=== PATIENT | female | born 1970 | race Caucasian/White ===

== ENCOUNTER 2024-09-24 06:58 | Day surgery (SDC) | payer OTHER, SELFPAY ==
--- NOTE | 2024-09-03 23:57 | PCM.HP.BLA ---
History and Physical Date of Admission: 09/24/24 HPI: The patient is a 54 year old female presenting for pre-operative visit. She is scheduled for Hysteroscopy D&C with polyp resection , for PMB and thickened endometrium on 09/24/24. Procedure discussed along with risks, benefits and complications. Other alternatives discussed for management. Consent form signed? No. PAST MEDICAL HISTORY PAST MEDICAL HISTORY Diagnosis Date ? Anemia ? Endometriosis, site unspecified Endometriosis ? False positive stress test chest tightness ? Hypertension ? Other and unspecified hyperlipidemia PAST SURGICAL HISTORY PAST SURGICAL HISTORY Procedure Laterality Date ? DELIVERY ONLY 12/1994 , low cervical ? COLONOSCOPY FLX DX W/COLLJ SPEC WHEN PFRMD 03/03/2020 Colonoscopy ? ENDOMETRIAL BX W/WO ENDOCERVIX BX W/O DILAT SPX 11/22/2004 ? EXC CYST/ABERRANT BREAST TISSUE OPEN LESION 02/1994 ? LAPS ABD PRTM&OMENTUM DX W/WO SPEC BR/WA SPX 1992 Laparoscopy ? PAST SURGICAL HISTORY OF 06/2008 2 Cysts removed from back (benign) ? PAST SURGICAL HISTORY OF cyst removed from neck CURRENT MEDICATIONS Current Outpatient Medications Medication Sig Dispense Refill ? phenazopyridine (PYRIDIUM) 200 mg tablet Take 1 tablet by mouth three times a day as needed (bladder discomfort). for up to 3 days 27 tablet 1 ? norethindrone (AYGESTIN) 5 mg tablet Take 0.5 tablets by mouth once daily. 10 days a month to induce menses (Patient not taking: Reported on 06/23/2024) 5 tablet 3 ? famotidine (PEPCID) 20 mg tablet Take 20 mg by mouth twice daily. ? ferrous sulfate 325 mg (65 mg iron) tablet Take 1 tablet by mouth once daily. 3 ? lisinopril (ZESTRIL, PRINIVIL) 20 mg tablet Take 20 mg by mouth once daily. 0 ? atorvastatin calcium(LIPITOR 10 MG TAB) Take one(1) tablet daily. 90 3 No current facility-administered medications for this visit. ALLERGIES: Patient has no known allergies. PERSONAL HISTORY: SOCIAL HISTORY Social History Tobacco Use ? Smoking status: Never ? Smokeless tobacco: Never Vaping Use ? Vaping status: Never Used Substance Use Topics ? Alcohol use: No ? Drug use: No FAMILY HISTORY: FAMILY HISTORY FAMILY HISTORY Adopted: Yes REVIEW OF SYMPTOMS: GENERAL: denies fevers or chills ENDOCRINOLOGY: has not been on steroids Cardiology : denies palpitations or chest pain Respiratory: denies SOB or cough Hematology: denies history of prolonged bleeding or easy bruising or VTE Allergy: Denies history of personal or family history of allergy to anesthesia PHYSICAL EXAMINATION: VITALS: Last menstrual period 07/08/2024. GENERAL: The patient is well nourished, well hydrated in no acute distress. , The patient is oriented to time, place, and person. PELVIC US 08/20/24 Impression The uterus is axial and measures 78 mm x 37 mm x 50 mm. The endometrial thickness is 16.3 mm. The endometrium is heterogeneous and thickened with no vascular flow visualized. This could represent an endometrial polyp, but other pathology cannot be excluded. The right ovary measures 22 mm x 13 mm x 19 mm. The left ovary measures 24 mm x 16 mm x 10 mm. There is no free fluid visualized. IMPRESSION: PMB, thickened endometrium PLAN: The risks/benefits/alternatives and personal involved for the planned hysteroscopy D&C with polyp resectoin were reviewed with the patient. Her questions were answered to her satisfaction and she desires to proceed. Consent was signed. I reviewed with her postop instructions and expectations. Needs consent day of surgery FSH/estrogen levels in menopausal range I have reviewed and updated past medical and surgical history, medications and allergies Assessment & Plan Assessment/Plan (1) PMB (postmenopausal bleeding): (2) Endometrial thickening on ultrasound:
[2024-09-10 14:32] LABS: Hematocrit 41.6 % (37-47); Hemoglobin 13.3 g/dL (12.0-15.0); Mean Corpuscular Hgb 29.6 pg (27.0-32.0); Mean Corpuscular Volume 92.7 fL (81-99); Mean Platelet Vol. 9.2 fl (6.2-12.0); Platelet Count 274 K/mm3 (150-450); RBC Distribution Width CV 13.7 % (11.6-14.6); RBC Distribution Width SD 46.5 fl (35.1-43.9); Red Blood Count 4.49 M/mm3 (4.2-5.4); White Blood Count 7.5 K/mm3 (4.4-11.0)
[2024-09-10 15:21] LABS: Anion Gap 7 (5-15); BUN 15 mg/dL (7-18); BUN/Creat Ratio 12.4 RATIO (10-20); Calcium,Total 8.8 mg/dL (8.5-10.1); Chloride 106 mmol/L (98-107); Creatinine, Serum 1.21 mg/dL (0.55-1.02); EST Glomerular Filtration Rate 49 mL/min (>60); Est Glom Filt Rate - Afr Amer 59 mL/min (>60); Glucose 84 mg/dL (74-106); Potassium 3.9 mmol/L (3.5-5.1); Sodium Level 141 mmol/L (136-145)
[2024-09-24] VITALS (12 sets, daily range): BP systolic 104–141; BP diastolic 68–88; PULSE 52–64; RESP 16; TEMP 36.2–37.2; O2SAT 95–100; BMI 37.5
[2024-09-24] MEDS: Acetaminophen 500 MG Tablet 1000 MG PO (07:35)
[2024-09-24] MEDS: Ketorolac 30 MG/ML Syringe IV (07:35)
--- NOTE | 2024-09-24 07:46 | PCM.PRE.AN2 ---
ASA Classification* ASA Classification ASA Classification: 2 Assessment & Plan Anesthesia* Anesthesia Assessment Anesthesia Assessment: Discussed sedation and/or anesthesia options, risks, benefits, and alternatives with patient/parents/legal guardian/POA. Questions invited. The patient/parents/legal guardian/POA seems to understand and agrees to proceed with anesthesia plan. Reviewed the physical assessment, medical history, allergy history and patient home medications list prior to surgery/procedure/anesthetic and documented any changes. Performed airway and anesthesia risk assessments. Anesthesia Type Anesthesia Type: MAC (LMA as backup ) History Source History Obtained from:: Patient, Chart and Significant Other (spouse) Anesthesia Focused Assessment* Temperature: 98.9 F Pulse Rate: 62 Blood Pressure: 113/70 Respiratory Rate: 16 Pulse Ox: 99 Oxygen Delivery Method: Room Air Airway Assessment Mouth opens: >3 cm Mallampati Score: II Teeth Condition: Intact and Chipped/Broken (chipped upper incisor ) Neck Range of motion (ROM): Full ROM Focused Labs Anesthesia Preop lab: CBC WBC 7.5 K/mm3 (4.4-11.0) 09/10/24 14:09/10/24 RBC 4.49 M/mm3 (4.2-5.4) 09/10/24 14:09/10/24 Hgb 13.3 g/dL (12.0-15.0) 09/10/24 14:09/10/24 Hct 41.6 % (37-47) 09/10/24 14:09/10/24 Plt Count 274 K/mm3 (150-450) 09/10/24 14:09/10/24 CHEMISTRY Potassium 3.9 mmol/L (3.5-5.1) 09/10/24 14:09/10/24 Sodium 141 mmol/L (136-145) 09/10/24 14:09/10/24 BUN 15 mg/dL (7-18) 09/10/24 14:09/10/24 Creatinine 1.21 mg/dL (0.55-1.02) H 09/10/24 14:09/10/24 Glucose 84 mg/dL (74-106) 09/10/24 14:09/10/24 COAG Urine Test Pending 09/24/24 07:25 09/24/24 Pre-Assessment Diagnosis/Proposed Procedure Planned Operative Procedure(s): Hysteroscopy,D&C, possible polyp resection with symphion Anesthesia History 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 When Was Last Pacemaker Check QUESTION #4 FULL TEXT: You/Your Family Experience fever (hyperthermia) with Anesthesia Last Oral Intake Last Oral intake: Last Oral Intake NPO since 23:00 09/24/24 07:28 Meds taken in AM with sips of water? Meds patient instructed to take am of surgery PONV PONV - hairpiece stylist: PONV - hairpiece stylist Female Yes 09/07/24 09:30 HX of Motion Sickness No 09/07/24 09:30 HX of N/V After Surgery No 09/07/24 09:30 Non-Smoker Yes 09/07/24 09:30 Duration of Surgery greater No 09/07/24 09:30 than 60 minutes Number of Risk Factors 2 09/07/24 09:30 PONV Score Moderate Risk 09/07/24 09:30 Height & Weight Height & Weight: Anesthesia: Height & Weight Height 5 ft 4 in 09/24/24 07:28 Weight: 99.1 kg 09/24/24 07:28 Body Mass Index (BMI) 37.5 09/24/24 07:28 Respiratory Assessment Respiratory Assessment - hairpiece stylist: Respiratory Tract Infection Hx - hairpiece stylist Hx Respiratory Tract Infection Yes: 09/03/24 sinus infection 09/07/24 09:30 STOP Sleep Apnea STOP Sleep Apnea - hairpiece stylist: STOP Sleep Apnea - hairpiece stylist Hx Hypertension Yes: controlled with med 09/07/24 09:30 Hx Sleep Apnea No 09/07/24 09:30 CPAP BIPAP Do you snore loudly (louder No 09/07/24 09:30 than talking or can be heard Do you often feel tired/ No 09/07/24 09:30 fatigued/ sleepy during daytime? Has anyone observed you stop No 09/07/24 09:30 breathing during sleep? STOP Results Negative 09/07/24 09:30 QUESTION #5 FULL TEXT : Do you snore loudly (louder than talking or can be heard through closed doors)? Tobacco Use History Tobacco Use History - hairpiece stylist: Tobacco Use History - hairpiece stylist Tobacco Use Smoking Status Never smoker 09/07/24 09:30 Hx Tobacco Use No 09/07/24 09:30 Years Smoking Packs Smoked per Day Smoking Cessation Date was within the last 15 years Hx Smoking Cessation Date Hx Smoking Cessation Counseling Hematologic Medial History Hematologic Hx - hairpiece stylist: Hematologic Medical Hx - clinical documentation spec Hx of Blood Transfusion No 09/07/24 09:30 Hx of Transfusion in last 3 No 09/07/24 09:30 Months Date of Last Transfusion (if within last 3 months) Ever experience any problems No 09/07/24 09:30 with transfusion(s)? Specify any problems Hx of Preganancy in last 3 N/A 09/07/24 09:30 Months Nurse Filling Out Transfusion NBUCHER 09/07/24 09:30 & Questions: Date: 09/07/24 09/07/24 09:30 Time: 09:32 09/07/24 09:30 Patient unable to answer at this time (ie. confused, unrespo /Reproduction History /Reproductive History - hairpiece stylist: /Reproductive Hx- hairpiece stylist Hx Now No 09/07/24 09:30 Gestational Age (in weeks): EDC: Hx Hx Para Hx Section SAB No 09/07/24 09:30 Active Medications Active Medications: Current Medications Generic Name Dose Route Start Last Admin Trade Name Freq PRN Reason Stop Dose Admin Acetaminophen 1,000 mg 09/24/24 11:25 09/24/24 07:35 Acetaminophen 500 Mg Tablet PO 09/24/24 11:26 1,000 mg PREOP ONE Administration Ketorolac Tromethamine 30 mg 09/24/24 11:25 09/24/24 07:35 Ketorolac 30 Mg/Ml Syringe IV 09/24/24 11:26 30 mg PREOP ONE Administration PFSH Medical History Wears glasses Anemia High cholesterol GERD (gastroesophageal reflux disease) Non-smoker History of stress test History of endometrial biopsy Home Medications ?Medication ?Instructions ?Recorded ?Last Taken ?Type ascorbic acid (vitamin C) 100 mg 100 mg PO DAILY 09/07/24 Unknown History tablet (Vitamin C) atorvastatin 10 mg tablet 10 mg PO DAILY 09/07/24 Unknown History cholecalciferol (vitamin D3) 25 25 mcg PO DAILY 09/07/24 Unknown History mcg (1,000 unit) capsule (Vitamin D3) famotidine 20 mg tablet 20 mg PO DAILY 09/07/24 Unknown History ferrous sulfate 325 mg (65 mg 325 mg PO DAILY 09/07/24 Unknown History iron) tablet (FeroSul) lisinopril 20 mg tablet 20 mg PO DAILY 09/07/24 Unknown History Allergy/AdvReac Type Severity Reaction Status Date / Time No Known Allergies Allergy Verified 09/24/24 07:24 Surgical History History of colonoscopy History of breast biopsy History of laparoscopy History of section Social History Smoking Status: Never smoker Review of Systems (Anesthesia) ROS Narrative System reviewed and no additional complaints, except as documented.
[2024-09-24 08:28] LABS: Internal QC Validated? YES +Cl - CLEAR BKGD; Pregnancy, Urine Negative Negative
--- NOTE | 2024-09-24 08:40 | EMB_PTH ---
PATIENT: RANJANA [place]A [place] [facility] [id number] AGE/SX: 54/F ROOM: RE09/24/[address]: Dr. Kirstie Briseno MD : 1970 BED: DIS: 09/24/2024 SPEC #: [id number] RECD: 09/24/24 10:08 STATUS: SANTI CANDELARIO #: [id number] AURELIA: 09/24/24 08:[address]: Kirstie Briseno DEPT: SURGICAL PATHOLOGY RECD BY: Antelmo Naik ENTERED: 09/24/24 10:41 SP TYPE: ENDOM BX/C OTHR DR: Dr. Lyubov Neal MD Tissues: Endometrium, NOS Procedures: Surgery Specimen Level IV HEADER OPERATION: Hysteroscopy, D&C, polyp and fibroid resection PRE-OP DIAGNOSIS: Post menopausal bleeding, endometrial thickening on ultrasound TISSUE SUBMITTED: Endometrial curettings, polyp and fibroid MICROSCOPIC DIAGNOSIS Endometrial curettings, polyp and fibroid, D&C and polyp and fibroid resection: Predominantly proliferative endometrium with focal area of disordered proliferative endometrium. Polypoid fragments of endometrial tissue most consistent with fragments of benign endometrial polyp. See comment. 09/27/2024 COMMENT Clinical correlation and appropriate follow up are necessary. MICROSCOPIC DESCRIPTION Slides are reviewed. GROSS DESCRIPTION Received in fixative is one container labeled with the patient's name and designated Endometrial curettings, polyp, and fibroid. The specimen consists of multiple irregular fragments of lou soft to indurated tissue that in aggregate measure 5 x 3 x 0.6 cm. The specimen is totally submitted in four cassettes. 09/24/2024 TC:5 CPT:32015
--- NOTE | 2024-09-24 08:55 | OP.PCM_ITS ---
Problems Associated Problem List Diagnoses (1) Endometrial thickening on ultrasound: (2) PMB (postmenopausal bleeding): Operative Report (Standard) Operative Information Date of Procedure: 09/24/24 Pre-Operative Diagnosis: PMB< thickened endometrium Post-Operative Diagnosis: same customer security clerk: No Type of Anesthesia: MAC/Supplemental/Local RN Documented Start/Stop Times: Operation Date: 09/24/24 08:40 Case Time Into Pre-Op 09/24/24 07:16 Out of Pre-Op 09/24/24 08:45
--- NOTE | 2024-09-24 08:55 | PCM.OPRPT ---
Problems Associated Problem List Diagnoses (1) Endometrial thickening on ultrasound: (2) PMB (postmenopausal bleeding): Operative Report (Standard) Operative Information Date of Procedure: 09/24/24 Pre-Operative Diagnosis: PMB< thickened endometrium Post-Operative Diagnosis: same+ endometrial poly+ type 2 submucosal fibroid Surgery/Procedure Performed: hysteroscopy D&C with polyp resection and fibroid resection fruit harvester: No Type of Anesthesia: MAC/Supplemental/Local RN Documented Start/Stop Times: Operation Date: 09/24/24 08:40 Case Time Into Pre-Op 09/24/24 07:16 Out of Pre-Op 09/24/24 08:45 Procedure Start Time: 08:57 Procedure Stop Time: 09:20 Select all DRAINS/GRAFTS/IMPLANTS that apply: None Special Medications: none Estimated Blood Loss: 10 Fluids Replaced: 500 Specimen collected: Yes Description of specimen(s) removed: endometrial curettings/polyp and partial intracavitary fibroid Description of surgery: The patient was taken to the OR where she was prepped and draped in dorsal lithotomy position. The weighted speculum was placed in the vagina and the anterior lip of the cervix was grasped with a single-tooth tenaculum. A paracervical block was administered with 1% lidocaine with 1-100,000 epinephrine solution. The cervix was dilated serially with Hegar dilators. The 5mm hysteroscope was placed into the uterine cavity and the above findings were noted. The right tubal ostia was identified, the left was covered by the fundal fibroid The Symphion resection device was readied and inserted. It was used to do a visual D&C and resect the polyp easily. I resected approximately half of the polyp when the device turned off and said replaced the resection device. It was replaced and immediately the device turned off again. At this point approximately half of the fibroid had been removed. The remaining portion was well embedded into the fundus of the uterus and not able to be removed with polyp a ring forcep or sharp curettage so the procedure was ceased. The instruments were removed from the vagina. The specimen was handed off and sent to pathology. All sponge and needle counts were correct. Vaginal sweep was performed by me. The patient was awakened and taken to the recovery room in stable condition. Hysteroscopic fluid deficit is 500 cc of normal saline Surgical Findings: . Normal cervix and vagina. Normal endocervix. Thin endometrium, large anterior uterine polyp, fundal left-sided type II submucosal fibroid with most of the fibroid being present in the endometrial cavity Complications Complications: No Admit VTE Documentation VTE Present on Admission: No VTE Mechan Device Prophylaxis: SCD's VTE Pharm Prophylaxis ordered?: No
[2024-09-24] MEDS: Lidocaine 1% /Epi 1:100 (20ml) 20 ML Vial (08:58)
--- NOTE | 2024-09-24 09:35 | PCM.POST.ANE ---
Anesthesia: Postop Eval I Current Vital Signs Temperature: 98.4 F Pulse Rate: 60 Blood Pressure: 141/88 Respiratory Rate: 16 Pulse Ox: 100 Assessment Airway patent: Yes Spontaneous unlabored respirations: Yes nausea: No Vomiting: No Anesthesia Complication: No Fluid Hydration Crystalloid volume administer (ml): 0 Total IV fluid infused: 0 Progress Note Anesthesia document: Postop Eval 1 completed: Yes
--- NOTE | 2024-09-24 10:22 | DCINST_ITS ---
Discharge Instructions Diet Discharge Diet: No restrictions DC O2, CPAP, BIPAP needs Home O2 Discharge instructions: No Dressing / Incision May resume sexual activity in: 1 week Lifting Restrictions: none Dressing / Incision Call your doctor if your incision/area has: Sudden Increased Bleeding and Foul Smelling Discharge Call your doctor if you observe: Fever of 101 or Higher and Using more than 1 pad per hour (for 2 hrs in a row) Follow Up Care Please Follow Up With: Kirstie Briseno MD When: You do not have to have a postop appointment. I will contact you with your pathology results. Call [phone] or send a [employer] message for questions. Test Results: Test results from this visit will be discussed in further detail at your follow- up appointment, if applicable. Discharge Plan Admission Primary Reason for Your Visit: Hysterosopy D&C Attending Provider: Kirstie Briseno Primary Care Provider: Lyubov Neal Instructions Print Language: Peruvian Discharge Orders/Prescriptions Prescriptions: No Action atorvastatin 10 mg tablet 10 mg PO DAILY lisinopril 20 mg tablet 20 mg PO DAILY famotidine 20 mg tablet 20 mg PO DAILY ferrous sulfate [FeroSul] 325 mg (65 mg iron) tablet 325 mg PO DAILY Vitamin C 100 mg tablet 100 mg PO DAILY cholecalciferol (vitamin D3) [Vitamin D3] 25 mcg (1,000 unit) capsule 25 mcg PO DAILY Disposition Disposition (needs filled in before D/C Order can be placed): Home, Self Care
--- NOTE | 2024-09-24 12:06 | POSTOPAN2_ITS ---
Anesthesia Postop Eval I Sum Postop Eval Completion status Anesthesia document: Postop Eval 1 completed: Yes Anesthesia Postop Eval I Summary Anesthesia Postop Eval I Summary: Anesthesia Postop Eval I: Assessment Summary Airway patent Yes 09/24/24 12:05 RN INTERVENTIONAL.CSIR Spontaneous unlabored Yes 09/24/24 12:05 RN INTERVENTIONAL.CSIR respirations Mental status nausea No 09/24/24 12:05 RN INTERVENTIONAL.CSIR Vomiting No 09/24/24 12:05 RN INTERVENTIONAL.CSIR Anesthesia Postop Eval I: Fluid Summary Crystalloid volume administer 0 09/24/24 12:05 RN INTERVENTIONAL.CSIR (ml) Colloids volume administered ( ml) Blood Product volume administered (ml) Total IV fluid infused 0 09/24/24 12:05 RN INTERVENTIONAL.CSIR Anesthesia Postop Eval I: Summary Notes Anesthesia Complication No 09/24/24 12:05 RN INTERVENTIONAL.CSIR Anesthesia Complication Comment: Post-operative progress note Anesthesia: Postop Eval II Evaluation Mental status: Awake and Calm Pain Level: 0 nausea: No Vomiting: No
--- NOTE | 2024-09-24 12:06 | PCM.POSTANE2 ---
Anesthesia Postop Eval I Sum Postop Eval Completion status Anesthesia document: Postop Eval 1 completed: Yes Anesthesia Postop Eval I Summary Anesthesia Postop Eval I Summary: Anesthesia Postop Eval I: Assessment Summary Airway patent Yes 09/24/24 12:05 ABORIGINAL EDUCATION TEACHER.CSIR Spontaneous unlabored Yes 09/24/24 12:05 ABORIGINAL EDUCATION TEACHER.CSIR respirations Mental status nausea No 09/24/24 12:05 ABORIGINAL EDUCATION TEACHER.CSIR Vomiting No 09/24/24 12:05 ABORIGINAL EDUCATION TEACHER.CSIR Anesthesia Postop Eval I: Fluid Summary Crystalloid volume administer 0 09/24/24 12:05 ABORIGINAL EDUCATION TEACHER.CSIR (ml) Colloids volume administered ( ml) Blood Product volume administered (ml) Total IV fluid infused 0 09/24/24 12:05 ABORIGINAL EDUCATION TEACHER.CSIR Anesthesia Postop Eval I: Summary Notes Anesthesia Complication No 09/24/24 12:05 ABORIGINAL EDUCATION TEACHER.CSIR Anesthesia Complication Comment: Post-operative progress note Anesthesia: Postop Eval II Evaluation Mental status: Awake and Calm Pain Level: 0 nausea: No Vomiting: No
--- NOTE | 2024-09-24 15:59 | PCM.POST.ANE ---
Anesthesia: Postop Eval I Current Vital Signs Temperature: 98.4 F Pulse Rate: 60 Blood Pressure: 141/88 Respiratory Rate: 16 Pulse Ox: 100 Oxygen Delivery Method: Room Air Assessment Airway patent: Yes Spontaneous unlabored respirations: Yes Mental status: Awake nausea: No Vomiting: No Anesthesia Complication: Yes Anesthesia Complication Comment:: none Fluid Hydration Crystalloid volume administer (ml): 30 Total IV fluid infused: 30 Progress Note Anesthesia document: Postop Eval 1 completed: Yes
== END 2024-09-24 11:36 | disposition home or self-care (01) ==
LOC: SDC 06:59 → AC 07:04
PROVIDERS: Anesthesiology; PCP Family Medicine; Referring Provider Obstetrics & Gynecology; Visit Provider Obstetrics & Gynecology
PROC: 0UB98ZZ Excision of Uterus, Via Natural or Artificial Opening Endoscopic (ICD-10-PCS; CPT 58558; principal; 2024-09-24 08:25)
DX: N95.0 Postmenopausal bleeding (principal); I10 Essential (primary) hypertension; E78.5 Hyperlipidemia, unspecified; D64.9 Anemia, unspecified; N84.0 Polyp of corpus uteri; D25.0 Submucous leiomyoma of uterus
CPT/HCPCS: 58565; 58558; 00952; 36415; 80048; 81025; 85027; 88305; A4216; J2405

== ENCOUNTER 2025-07-21 08:45 | Day surgery (SDC) | payer OTHER, SELFPAY ==
--- NOTE | 2025-07-20 17:15 | HP.PCM_ITS ---
History and Physical Date of Admission: 07/21/25 HPI: The patient is a 54 year old female presenting for pre-operative visit. She is scheduled for hysteroscopy D&C w/ polyp/fibroid resection, for fibroid/polyp of uterus on 07/20/25. Procedure discussed along with risks, benefits and complications. Other alternatives discussed for management. Consent form signed? Yes. ? ? Past Medical History PAST MEDICAL HISTORYDiagnosisDate?Anemia??Endometriosis, site unspecified?? Endometriosis?False positive stress test??chest tightness?Hypertension??Other and unspecified hyperlipidemia? ? ? PAST SURGICAL HISTORY PAST SURGICAL HISTORYProcedureLateralityDate? DELIVERY ONLY?12/1994?C- section, low cervical?COLONOSCOPY FLX DX W/COLLJ SPEC WHEN PFRMD?03/03/2020? Colonoscopy?ENDOMETRIAL BX W/WO ENDOCERVIX BX W/O DILAT SPX?11/22/2004?EXC CYST/ABERRANT BREAST TISSUE OPEN 1/> LESION?02/1994?EXC CYST/ABERRANT BREAST TISSUE OPEN /> LESIONRight??2020?HYSTEROSCOPY REMOVAL LEIOMYOMATA?09/24/2024? hsyteroscopy D&C w/ polyp resection and partial submucous fibroid resection-not completely resected due to device malfucntion and no other device available?LAPS ABD PRTM&OMENTUM DX W/WO SPEC BR/WA SPX?1992?Laparoscopy?PAST SURGICAL HISTORY OF?06/2008?2 Cysts removed from back (benign)?PAST SURGICAL HISTORY OF???cyst removed from neck ? ? ? CURRENT MEDICATIONS Current Outpatient MedicationsMedicationSigDispenseRefill?TURMERIC POTake by mouth.???CRANBERRY POTake by mouth.???cholecalciferol, vitamin D3, (VITAMIN D3 PO)Take by mouth.???ascorbic acid (VITAMIN C PO)Take by mouth.???diclofenac (VOLTAREN ARTHRITIS PAIN) 1 % topical gelApply 2 g to affected area four times daily. As Needed for Pain20 g1?phenazopyridine (PYRIDIUM) 200 mg tabletTake 1 tablet by mouth three times a day as needed (bladder discomfort). for up to 3 days27 tablet1?famotidine (PEPCID) 20 mg tabletTake 20 mg by mouth twice daily.???ferrous sulfate 325 mg (65 mg iron) tabletTake 1 tablet by mouth once daily.?3?lisinopril (ZESTRIL, PRINIVIL) 20 mg tabletTake 20 mg by mouth once daily.?0?atorvastatin calcium(LIPITOR 10 MG TAB)Take one(1) tablet daily.903?No current facility-administered medications for this visit. ? ? ALLERGIES: Patient has no known allergies. ? PERSONAL HISTORY: [Social History] [Social History] Tobacco Use ? Smoking status: Never ? Smokeless tobacco: Never Vaping Use ? Vaping status: Never Used Substance Use Topics ? Alcohol use: No ? Drug use: No ? FAMILY HISTORY: Family History FAMILY HISTORY Adopted: Yes ? ? REVIEW OF SYMPTOMS: GENERAL: denies fevers or chills ENDOCRINOLOGY: has not been on steroids Cardiology : denies palpitations or chest pain Respiratory: denies SOB or cough Hematology: denies history of prolonged bleeding or easy bruising or VTE Allergy: Denies history of personal or family history of allergy to anesthesia ? PHYSICAL EXAMINATION: ? VITALS: Blood pressure 148/82, height 162 cm (5' 3.78), weight 103 kg (227 lb), last menstrual period 07/18/2024. ? GENERAL: The patient is well nourished, well hydrated in no acute distress. , The patient is oriented to time, place, and person. NECK: Supple. No lynphadenopathy, normal thyroid, no thyromegaly. LUNGS: Clear to auscultation bilaterally. no wheezes, rhonchi or rales HEART: Regular rate and rhythm, Normal heart sounds, and No murmurs or gallops ? IMPRESSION: endometrial polyp vs fibroid intracavitary ? PLAN: The risks/benefits/alternatives and personal involved for the planned hysteroscopy D&C with polyp/fibroid resection were reviewed with the patient. Her questions were answered to her satisfaction and she desires to proceed. Consent was signed. I reviewed with her postop instructions and expectations. ? Equipment malfunctioned last time in OR unable to complete the case, rescheduled to complete removal. ? I have reviewed and updated past medical and surgical history, medications and allergies Kirstie Briseno M.D. Assessment & Plan Assessment/Plan (1) Endometrial polyp:
[2025-07-21] VITALS (8 sets, daily range): BP systolic 108–143; BP diastolic 62–83; PULSE 69–84; RESP 16; TEMP 36.3–36.7; O2SAT 95–100; BMI 38.9
[2025-07-21] MEDS: Lactated Ringers 1,000 ML 15 ML IV (09:07)
[2025-07-21] MEDS: Ketorolac 30 MG/ML Syringe IV (09:08)
[2025-07-21 09:10] LABS: Hematocrit 41.4 % (37-47); Hemoglobin 13.2 g/dL (12.0-15.0); Mean Corp Hgb Conc 31.9 g/dL (32-36); Mean Corpuscular Volume 92.4 fL (81-99); Mean Platelet Vol. 8.8 fl (6.2-12.0); Platelet Count 284 K/mm3 (150-450); RBC Distribution Width CV 13.7 % (11.6-14.6); RBC Distribution Width SD 46.7 fl (35.1-43.9); Red Blood Count 4.48 M/mm3 (4.2-5.4); White Blood Count 6.5 K/mm3 (4.4-11.0)
--- NOTE | 2025-07-21 09:10 | PCM.PRE.AN2 ---
ASA Classification* ASA Classification ASA Classification: 2 Assessment & Plan Anesthesia* Anesthesia Assessment Anesthesia Assessment: Discussed sedation and/or anesthesia options, risks, benefits, and alternatives with patient/parents/legal guardian/POA. Questions invited. The patient/parents/legal guardian/POA seems to understand and agrees to proceed with anesthesia plan. Reviewed the physical assessment, medical history, allergy history and patient home medications list prior to surgery/procedure/anesthetic and documented any changes. Performed airway and anesthesia risk assessments. Anesthesia Type Anesthesia Type: General and MAC History Source History Obtained from:: Patient and Chart Anesthesia Focused Assessment* Temperature: 97.8 F Pulse Rate: 73 Blood Pressure: 119/67 Respiratory Rate: 16 Pulse Ox: 96 Oxygen Delivery Method: Room Air Airway Assessment Mouth opens: >3 cm Mallampati Score: II Teeth Condition: Intact Neck Range of motion (ROM): Full ROM Labs Anesthesia Preop lab: CBC WBC, (4.4-11.0) 7.5 K/mm3 09/10/24, 14:09 RBC, (4.2-5.4) 4.49 M/mm3 09/10/24, 14:09 Hgb, (12.0-15.0) 13.3 g/dL 09/10/24, 14:09 Hct, (37-47) 41.6 % 09/10/24, 14:09 Plt Count, (150-450) 274 K/mm3 09/10/24, 14:09 CHEMISTRY Potassium, (3.5-5.1) 3.9 mmol/L 09/10/24, 14:09 Sodium, (136-145) 141 mmol/L 09/10/24, 14:09 BUN, (7-18) 15 mg/dL 09/10/24, 14:09 Creatinine, (0.55-1.02) 1.21 mg/dL H 09/10/24, 14:09 Glucose, (74-106) 84 mg/dL 09/10/24, 14:09 COAG Urine Test Negative Negative 09/24/24, 07:25 Pre-Assessment Diagnosis/Proposed Procedure Planned Operative Procedure(s): Hysteroscopy,D&C Symphion Anesthesia History 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 When Was Last Pacemaker Check QUESTION #4 FULL TEXT: You/Your Family Experience fever (hyperthermia) with Anesthesia Last Oral Intake Last Oral intake: Last Oral Intake NPO since 22:00 07/21/25 09:02 Meds taken in AM with sips of Yes 07/21/25 09:02 water? 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 - educational therapy teacher Female Yes 07/08/25 13:35 HX of Motion Sickness No 07/08/25 13:35 HX of N/V After Surgery No 07/08/25 13:35 Non-Smoker Yes 07/08/25 13:35 Duration of Surgery greater No 07/08/25 13:35 than 60 minutes Number of Risk Factors 2 07/08/25 13:35 PONV Score Moderate Risk 07/08/25 13:35 Height & Weight Height & Weight: Anesthesia: Height & Weight Height 5 ft 4 in 07/21/25 09:02 Weight: 102.965 kg 07/21/25 09:02 Body Mass Index (BMI) 38.9 07/21/25 09:02 Respiratory Assessment Respiratory Assessment - educational therapy teacher: Respiratory Tract Infection Hx - educational therapy teacher Hx Respiratory Tract Infection No 07/08/25 13:35 STOP Sleep Apnea STOP Sleep Apnea - educational therapy teacher: STOP Sleep Apnea - educational therapy teacher Hx Hypertension Yes: controlled with med 07/08/25 13:35 Hx Sleep Apnea No 07/08/25 13:35 CPAP BIPAP Do you snore loudly (louder No 07/08/25 13:35 than talking or can be heard Do you often feel tired/ No 07/08/25 13:35 fatigued/ sleepy during daytime? Has anyone observed you stop No 07/08/25 13:35 breathing during sleep? STOP Results Negative 07/08/25 13:35 QUESTION #5 FULL TEXT : Do you snore loudly (louder than talking or can be heard through closed doors)? 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 Specify any problems Hx of Preganancy in last 3 N/A 07/08/25 13:35 Months Nurse Filling Out Transfusion NBUCHER 07/08/25 13:35 & Questions: Date: 07/08/25 07/08/25 13:35 Time: 13:36 07/08/25 13:35 Patient unable to answer at this time (ie. confused, unrespo /Reproduction History /Reproductive History - educational therapy teacher: /Reproductive Hx- educational therapy teacher Hx Now No 07/08/25 13:35 Gestational Age (in weeks): EDC: Hx Hx Para Hx Section SAB No 07/08/25 13:35 Does the father of the baby or his family experience fever w Father of the baby Malignant Hypertension history comment Active Medications Active Medications: Current Medications Generic Name Dose Route Start Last Admin Trade Name Freq PRN Reason Stop Dose Admin Acetaminophen 1,000 mg 07/21/25 10:20 07/21/25 09:08 Acetaminophen 500 Mg Tablet PO 07/21/25 10:21 1,000 mg PREOP ONE Administration Lactated Ringer's 1,000 mls @ 15 mls/hr 07/21/25 09:00 07/21/25 09:07 IV 15 mls/hr .Q48H ARTIE Administration Ketorolac Tromethamine 30 mg 07/21/25 10:20 07/21/25 09:08 Ketorolac 30 Mg/Ml Syringe IV 07/21/25 10:21 30 mg PREOP ONE Administration [facility] Medical History Endometrial thickening on ultrasound PMB (postmenopausal bleeding) Wears glasses Anemia High cholesterol GERD (gastroesophageal reflux disease) Non-smoker History of stress test Home Medications ?Medication ?Instructions ?Recorded ?Last Taken ?Type ascorbic acid (vitamin C) 100 mg 100 mg PO DAILY 09/07/24 07/20/25 History tablet (Vitamin C) atorvastatin 10 mg tablet 10 mg PO DAILY 09/07/24 07/20/25 History cholecalciferol (vitamin D3) 25 25 mcg PO DAILY 09/07/24 07/20/25 History mcg (1,000 unit) capsule (Vitamin D3) famotidine 20 mg tablet 20 mg PO DAILY 09/07/24 07/21/25 07:30 History ferrous sulfate 325 mg (65 mg 325 mg PO DAILY 09/07/24 07/20/25 History iron) tablet (FeroSul) lisinopril 20 mg tablet 20 mg PO DAILY 09/07/24 07/20/25 History Allergy/AdvReac Type Severity Reaction Status Date / Time No Known Allergies Allergy Verified 07/08/25 13:33 Surgical History History of endometrial biopsy History of colonoscopy History of breast biopsy History of laparoscopy History of section Social History Smoking Status: Never smoker Review of Systems (Anesthesia) ROS Narrative System reviewed and no additional complaints, except as documented.
[2025-07-21] MEDS: Midazolam 2 MG/2 ML Syringe IV (09:21)
[2025-07-21] MEDS: Lidocaine 1% (5 ml sdv) 5 ML Vial IV (09:26)
[2025-07-21] MEDS: fentaNYL 100 MCG/2 ML Ampul IV (09:36)
[2025-07-21] MEDS: Lidocaine 1% /Epi 1:100 (20ml) 20 ML Vial (09:42)
--- NOTE | 2025-07-21 10:00 | EMB_PTH ---
PATIENT: RANJANA RUEDA LOC: [facility] [place] U#:[id number] AGE/SX: 54/F ROOM: RE07/21/[address]: Dr. Kirstie Briseno MD : 1970 BED: DIS: 07/21/2025 SPEC #: [id number] RECD: 07/21/25 10:13 STATUS: SANTI REArturo #: [id number] AURELIA: 07/21/25 10:[address]: Kirstie Briseno DEPT: SURGICAL PATHOLOGY RECD BY: Davon Hardy ENTERED: 07/21/25 11:09 SP TYPE: ENDOM BX/C VINCE DR: Dr. Lyubov Neal MD Tissues: A - Endometrium, NOS Procedures: Surgery Specimen Level IV HEADER OPERATION: Hysteroscopy, D&C PRE-OP DIAGNOSIS: Endometrial polyp TISSUE SUBMITTED: A- Endometrial curettings and uterine fibroid MICROSCOPIC DIAGNOSIS A. Endometrium, curettage: Fragments of smooth muscle consistent with leiomyoma. Scant proliferative endometrium. MICROSCOPIC DESCRIPTION Slides are reviewed. GROSS DESCRIPTION A. Received in formalin labeled with the patient's name and date of . Designated as endometrial curettings and uterine fibroid is a 3.3 x 2.5 x 0.3 cm aggregate of lou-pink irregular tissue fragments. Entirely submitted in 2 cassettes. [place] [id number]
--- NOTE | 2025-07-21 10:02 | PCM.DC ---
Discharge Instructions DC O2, CPAP, BIPAP needs Home O2 Discharge instructions: No Dressing / Incision Discharge Activity: May Drive (07/22) Return to work on:: 07/25/25 May shower in (days): 1 May resume sexual activity in: 1 week Lifting Restrictions: none Dressing / Incision Call your doctor if your incision/area has: Sudden Increased Bleeding and Foul Smelling Discharge Call your doctor if you observe: Fever of 101 or Higher and Using more than 1 pad per hour (for 2 hrs in a row) Follow Up Care Please Follow Up With: Kirstie Briseno MD When: You do not need a postop appointment. Send a [employer] message or call [phone] to make an appointment or with any concerns. Test Results: Test results from this visit will be discussed in further detail at your follow-up appointment, if applicable. Discharge Plan Admission Primary Reason for Your Visit: Hysteroscopy D&C with fibroid resection Attending Provider: Kirstie Briseno Primary Care Provider: Lyubov Neal Instructions Print Language: Arabic Discharge Orders/Prescriptions Prescriptions: No Action atorvastatin 10 mg tablet 10 mg PO DAILY lisinopril 20 mg tablet 20 mg PO DAILY famotidine 20 mg tablet 20 mg PO DAILY ferrous sulfate [FeroSul] 325 mg (65 mg iron) tablet 325 mg PO DAILY Vitamin C 100 mg tablet 100 mg PO DAILY cholecalciferol (vitamin D3) [Vitamin D3] 25 mcg (1,000 unit) capsule 25 mcg PO DAILY Referrals / Follow Up: Lyubov Neal MD [Primary Care Provider, Medical] Disposition Disposition (needs filled in before D/C Order can be placed): Home, Self Care
--- NOTE | 2025-07-21 10:03 | PCM.OPRPT ---
Operative Report (Standard) Operative Information Date of Procedure: 07/21/25 Pre-Operative Diagnosis: thickened endometrium Post-Operative Diagnosis: same Surgery/Procedure Performed: Hysteroscopy D&C with fibroid resection manager sterile processing: Yes Barnworker Groom: Carlin Moon Tasks completed by sales assistant displays: Retracting Additional inside sales assistant?: No Type of Anesthesia: MAC/Supplemental/Local RN Documented Start/Stop Times: Operation Date: 07/21/25 10:20 Case Time Into Pre-Op 07/21/25 08:48 Out of Pre-Op 07/21/25 09:16 Anesthesia Start 07/21/25 09:21 Into Room 07/21/25 09:21 Procedure Start 07/21/25 09:36 Procedure End 07/21/25 09:54 Anesthesia End 07/21/25 09:59 Out of Room 07/21/25 09:59 Into Recovery 07/21/25 10:02 Procedure Start Time: 09:36 Procedure Stop Time: 09:54 Select all DRAINS/GRAFTS/IMPLANTS that apply: None Estimated Blood Loss: 20 Fluids Replaced: 700 cc LR Specimen collected: Yes Description of specimen(s) removed: endometrial curettings and fibroid Description of surgery: The patient was taken to the OR where she was prepped and draped in dorsal lithotomy position. The weighted speculum was placed in the vagina and the anterior lip of the cervix was grasped with a single-tooth tenaculum. A paracervical block was administered with 1% lidocaine with 1-100,000 epinephrine solution. The cervix was dilated serially with Hegar dilators. The Symphion hysteroscope was placed into the uterine cavity and the above findings were noted. Bilateral tubal ostia were identified. The Symphion resection device was readied and inserted. A visual D&C was done of the endometrial cavity ensuring removal of the anterior lesion that may have been a polyp. I also partially resected the submucosal fibroid however it was in the cornual area very near it. Tubal ostia and I did not remove the entire fibroid due to the location and I did not want to risk uterine perforation. The instruments were removed from the vagina. The specimen was handed off and sent to pathology. All sponge and needle counts were correct. Vaginal sweep was performed by me. The patient was awakened and taken to the recovery room in stable condition. Calculated hysteroscopic fluid deficit 650 cc of normal saline Surgical Findings: small focal abnormality anterior uterine wall, possible polyp, normal cervix and vagina, left cornual submucosal fibroid Complications Complications: No Admit VTE Documentation VTE Present on Admission: No VTE Mechan Device Prophylaxis: SCD's VTE Pharm Prophylaxis ordered?: No
--- NOTE | 2025-07-21 10:04 | PCM.POST.ANE ---
Anesthesia: Postop Eval I Current Vital Signs Temperature: 97.8 F Pulse Rate: 84 Blood Pressure: 108/62 Respiratory Rate: 16 Pulse Ox: 95 Assessment Airway patent: Yes Spontaneous unlabored respirations: Yes Mental status: Awake and Calm nausea: No Vomiting: No Anesthesia Complication: No Fluid Hydration Crystalloid volume administer (ml): 700 Total IV fluid infused: 700 Progress Note Anesthesia document: Postop Eval 1 completed: Yes
--- NOTE | 2025-07-21 12:54 | POSTOPAN2_ITS ---
Anesthesia Postop Eval I Sum Postop Eval Completion status Anesthesia document: Postop Eval 1 completed: Yes Anesthesia Postop Eval I Summary Anesthesia Postop Eval I Summary: Anesthesia Postop Eval I: Assessment Summary Airway patent Yes 07/21/25 10:05 CLEAT [email or web address] Spontaneous unlabored Yes 07/21/25 10:05 CLEAT [email or web address].SHOF respirations Mental status Awake,Calm 07/21/25 10:05 CLEAT [email or web address] nausea No 07/21/25 10:05 CLEAT [email or web address].SHOF Vomiting No 07/21/25 10:05 CLEAT [email or web address].SHOF Anesthesia Postop Eval I: Fluid Summary Crystalloid volume administer 700 07/21/25 10:05 CLEAT [email or web address].SHOF (ml) Colloids volume administered ( ml) Blood Product volume administered (ml) Total IV fluid infused 700 07/21/25 10:05 CLEAT [email or web address].SHOF Anesthesia Postop Eval I: Summary Notes Anesthesia Complication No 07/21/25 10:05 CLEAT [email or web address].SHOF Anesthesia Complication Comment: Post-operative progress note Anesthesia: Postop Eval II Evaluation Mental status: Awake and Calm Pain Level: 1 nausea: No Vomiting: No Complications Anesthesia Complication: No
--- NOTE | 2025-07-21 12:54 | PCM.POSTANE2 ---
Anesthesia Postop Eval I Sum Postop Eval Completion status Anesthesia document: Postop Eval 1 completed: Yes Anesthesia Postop Eval I Summary Anesthesia Postop Eval I Summary: Anesthesia Postop Eval I: Assessment Summary Airway patent Yes 07/21/25 10:05 MANAGER [email or web address] Spontaneous unlabored Yes 07/21/25 10:05 MANAGER MAIL.SHOF respirations Mental status Awake,Calm 07/21/25 10:05 MANAGER MAIL.SHOF nausea No 07/21/25 10:05 MANAGER MAIL.SHOF Vomiting No 07/21/25 10:05 MANAGER MAIL.SHOF Anesthesia Postop Eval I: Fluid Summary Crystalloid volume administer 700 07/21/25 10:05 MANAGER MAIL.SHOF (ml) Colloids volume administered ( ml) Blood Product volume administered (ml) Total IV fluid infused 700 07/21/25 10:05 MANAGER MAIL.SHOF Anesthesia Postop Eval I: Summary Notes Anesthesia Complication No 07/21/25 10:05 MANAGER MAIL.SHOF Anesthesia Complication Comment: Post-operative progress note Anesthesia: Postop Eval II Evaluation Mental status: Awake and Calm Pain Level: 1 nausea: No Vomiting: No Complications Anesthesia Complication: No
== END 2025-07-21 11:16 | disposition home or self-care (01) ==
LOC: SDC 08:45 → AC 08:47
PROVIDERS: PCP Family Medicine; Referring Provider Obstetrics & Gynecology; Visit Provider Obstetrics & Gynecology
PROC: 0UB98ZZ Excision of Uterus, Via Natural or Artificial Opening Endoscopic (ICD-10-PCS; CPT 58558; principal; 2025-07-21 10:05)
DX: D25.0 Submucous leiomyoma of uterus (principal); Z79.899 Other long term (current) drug therapy; R93.89 Abnormal findings on diagnostic imaging of other specified body structures; D64.9 Anemia, unspecified; I10 Essential (primary) hypertension
CPT/HCPCS: 58561; 00952; 85027; 88305